=== PATIENT | female | born 1950 ===

== ENCOUNTER 2020-05-23 13:58 | Outpatient (REF) | payer BC, SELFPAY | END 2020-05-23 13:59 | disposition home or self-care (01) | LOC: HO.HMGCLDS 13:58 | PROVIDERS: PCP Internal Medicine; Visit Provider Internal Medicine | DX: Z20.828 Contact with and (suspected) exposure to other viral communicable diseases (principal) | CPT/HCPCS: U0003 ==

== ENCOUNTER 2020-11-26 07:48 | Outpatient (REF) | payer BC, SELFPAY ==
--- NOTE | ~2020-11-26 | MM_ITS ---
EXAMINATION: MM SCREENING DIGITAL BREAST TOMOSYNTHESIS, BILATERAL CLINICAL INFORMATION: Screening. Asymptomatic. The lifetime risk of breast cancer based on the Tyrer-Cuzick Model is 3%. COMPARISON: Mammography: 02/02/2019, 12/28/2017, 07/26/2015 TECHNIQUE: Digital breast tomosynthesis is performed in both the craniocaudal and mediolateral oblique views along with computer-aided detection (CAD). Synthesized 2D images are generated from the tomosynthesis. FINDINGS: There are scattered areas of fibroglandular density (ACR BI-RADS breast composition Category b). There is fibronodular parenchymal pattern without significant change. There is no architectural abnormality or significant mass. No abnormal calcifications. Pacemaker generator overlies and partly obscures left axilla on MLO view. The skin contours are smooth. MM/MM tomosynthesis screening BI IMPRESSION: No significant changes from prior studies. ASSESSMENT: BI-RADS 2: Benign RECOMMENDATION: Routine annual mammography screening. This patient's information was entered into a reminder system with a target due date for their next mammogram.
--- NOTE | ~2020-11-26 | MM_ITS ---
EXAMINATION: BONE DENSITOMETRY CLINICAL INDICATION: Encounter for screening for osteoporosis. COMPARISON: Previous BD dated 01/21/2016 and baseline BD dated 08/05/2010. TECHNIQUE: Using a Merkle DXA System (software version: 13.1) manufactured by [employer], dual-energy x-ray absorptiometry was performed of the lumbar spine and left hip. The images are of good technical quality. Summary results are attached. FINDINGS: AP SPINE L1-L4: Current: BMD 1.292 g/cm2, Z-score 2.7, T-score 0.9, normal, 5.3% increase from previous, 7.4% decrease from baseline (<5% change is not significant). Prior: BMD 1.227 g/cm2. Baseline: BMD 1.203 g/cm2. LEFT FEMUR, NECK: Current: BMD 0.771 g/cm2, Z-score -0.2, T-score -1.9, osteopenia. Prior: BMD 0.877 g/cm2. Baseline: BMD 0.888 g/cm2. LEFT FEMUR, TOTAL: Current: BMD 0.817 g/cm2, Z-score 0.0, T-score -1.5, osteopenia, 9.8% decrease from previous, 10.9% decrease from baseline (<5% change is not significant). Prior: BMD 0.906 g/cm2. Baseline: BMD 0.917 g/cm2. IDENTIFIED RISK FACTORS: Early menopause. Secondary osteoporosis. Hysterectomy. Bilateral oophorectomy. HISTORY OF FRACTURE: None listed. MEDICATIONS: Multivitamin. ERT/SERMS. MM/XR DEXA axial skeleton IMPRESSION: 1. DIAGNOSIS: Osteopenia based on the lowest T-score value of -1.9 in the femoral neck applying World Health Organization criteria. 2. 10-YEAR FRACTURE RISK PREDICTION, FRAX: Major osteoporotic fracture (clinical spine, forearm, hip or shoulder) 11.5%. Hip fracture 2.2%. 3. Treatment Recommendations: NOF guidelines recommend consideration for treatment in postmenopausal women and men age 50 and older presenting with the following: -A hip or vertebral (clinical or morphometric) fracture. -T-score less than or equal to -2.5 at the femoral neck or spine after appropriate evaluation to exclude secondary causes. -Low bone mass at the hip or spine and a 10-year fracture probability by FRAX of greater than or equal to 3% for hip fracture or greater than or equal to 20% for major osteoporotic fracture based on the [place] adapted WHO algorithm. 4. Other Recommendations: All treatment decisions require clinical judgment and consideration of individual patient factors, including patient preferences, comorbidities, previous drug use, risk factors not captured in the FRAX model (e.g. frailty, falls, vitamin D deficiency, increased bone turnover, interval significant decline in bone density) and possible under or overestimation of fracture risk by FRAX. Additional medical evaluation for secondary cause of low bone mineral density may be appropriate. FUTURE SCAN RECOMMENDATION: People with diagnosed cases of osteoporosis or at high risk for fracture should have regular bone mineral density tests. For patients eligible for Medicare, routine testing is allowed once every 2 years. The testing frequency can be increased to one year for patients who have rapidly progressing disease, those who are receiving or discontinuing medical therapy to restore bone mass, or have additional risk factors.
== END 2020-11-26 07:49 | disposition home or self-care (01) ==
LOC: HO.MAMMO 07:48
PROVIDERS: Visit Provider Internal Medicine
DX: Z13.820 Encounter for screening for osteoporosis (principal); Z78.0 Asymptomatic menopausal state; M85.852 Other specified disorders of bone density and structure, left thigh; Z90.710 Acquired absence of both cervix and uterus; Z90.722 Acquired absence of ovaries, bilateral; Z12.31 Encounter for screening mammogram for malignant neoplasm of breast
CPT/HCPCS: 77063; 77067; 77080

== ENCOUNTER 2020-12-20 06:55 | Outpatient (REF) | payer BC, SELFPAY ==
[2020-12-20 08:39] LABS: MANUAL DIFF FLAG NO
[2020-12-20 08:49] LABS: Basophils Percent Auto 0.6 % (0-2); Eosinophils Absolute Auto 0.2 X10*3/uL (0.0-0.4); Eosinophils Percent Auto 3.7 % (0-4); Hematocrit 43.4 % (37-47); Hemoglobin 14.4 g/dl (12.0-16.0); Imm Gran Abs Auto 0.02 X10*3/uL (0.00-0.03); Imm Gran Pct Auto 0.3 % (0.0-0.4); Lymphocytes Percent Auto 32.3 % (20-40); Mean Corpuscular HGB Conc 33.2 g/dl (31.0-35.0); Mean Corpuscular Hemoglobin 30.4 pg (27.0-33.0); Mean Corpuscular Volume 91.6 fL (80-98); Mean Platelet Volume 10.2 fL (9.4-12.3); Monocytes Absolute Auto 0.5 X10*3/uL (0.1-1.2); Monocytes Percent Auto 7.8 % (2-11); Neutrophils Absolute Auto 3.4 X10*3/uL (2.0-8.3); Neutrophils Percent Auto 55.3 % (45-73); Platelet Count 274 X10*3/uL (160-400); Red Blood Count 4.74 X10*6/uL (4.20-5.50); White Blood Count 6.2 X10*3/uL (4.8-10.8)
[2020-12-20 09:26] LABS: Alanine Aminotransferase 19 U/L (0-31); Anion Gap 12 (12-20); Aspartate Amino Transferase 28 U/L (5-31); Blood Urea Nitrogen 16 mg/dL (9-16); Calcium 9.1 mg/dL (8.4-10.2); Carbon Dioxide 27 mmol/L (22-29); Chloride 107 mmol/L (96-108); Cholesterol 256 mg/dL; Estimated Glomerular Filt Rate > 60; Glucose Fasting 100 mg/dL (60-99); HDL Cholesterol 65 mg/dL; LDL Cholesterol Calculated 178 mg/dl; Potassium 4.8 mmol/L (3.3-5.1); Sodium 141 mmol/L (135-145); Triglycerides 66 mg/dL
[2020-12-20 09:38] LABS: Vitamin D 25-OH Total 37.7 ng/mL (>30)
== END 2020-12-20 06:56 | disposition home or self-care (01) ==
LOC: HO.LAB 06:55
PROVIDERS: PCP Internal Medicine; Visit Provider Internal Medicine
DX: Z00.00 Encounter for general adult medical examination without abnormal findings (principal); Z12.31 Encounter for screening mammogram for malignant neoplasm of breast; E89.40 Asymptomatic postprocedural ovarian failure; I10 Essential (primary) hypertension; I48.0 Paroxysmal atrial fibrillation; I49.5 Sick sinus syndrome; M85.852 Other specified disorders of bone density and structure, left thigh
CPT/HCPCS: 36415; 80048; 80061; 82306; 84450; 84460; 85025

== ENCOUNTER 2021-05-10 09:08 | Outpatient (REF) | payer BC, SELFPAY ==
--- NOTE | ~2021-05-10 | XR_ITS ---
EXAMINATION: XR WRIST, RIGHT CLINICAL INFORMATION: Pain in the right wrist COMPARISON: None TECHNIQUE: PA, lateral, and oblique views of the right wrist. FINDINGS: There is no fracture or dislocation. The carpal rows are well aligned. Moderate degenerative change at the triscaphe joint with narrowing and sclerosis. The soft tissues are unremarkable. 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
== END 2021-05-10 09:09 | disposition home or self-care (01) ==
LOC: HO.HMGCX 09:08
PROVIDERS: PCP Internal Medicine; Visit Provider Family Medicine
DX: M25.531 Pain in right wrist (principal)
CPT/HCPCS: 73110

== ENCOUNTER 2023-02-03 11:49 | Outpatient (AMB) | payer MEDICARE, SELFPAY ==
--- NOTE | 2023-02-03 12:03 | A.OFFPC_ITS ---
Vital Signs 02/03/23 12:04 Height 5 ft 3 in Weight 135 lb BMI 23.9 BP 110/72 Blood Pressure Location Rt brachial Position Sitting Pulse 56 Pulse Source Pulse Oximeter Pulse Oximetry (%) 96 Oxygen Delivery Method Room Air Intake Visit Reasons: Annual PE Intake Note: Pt is here today for her PE: Never had a colonoscopy Allergies penicillin V Allergy (Unknown, Verified 02/03/23 12:23) unknown, per allergy test Penicillins [PENICILLINS] Allergy (Unknown, Verified 02/03/23 12:23) DURING ALLERGY TESTING WAS INSTRUCTED NEVER TO TAKE ENVIROMENTAL Allergy (Unknown, Uncoded 02/03/23 12:23) HEADACHES Medication List - Last Reconciled 02/03/23 by Berenice Lind MD aspirin (Adult Low Dose Aspirin) 81 mg PO DAILY estradiol 1 mg PO DAILY metoprolol succinate ER 12.5 mg PO DAILY multivitamin 1 tab PO DAILY turmeric root extract 500 mg PO DAILY Tobacco use date assessed: 02/03/23 Fall risk assessment: No Falls in past year Last assessed Fall Risk: 02/03/23 Dental Screening Dental Screen Date: 02/03/23 Did you have a dental visit in the last 12 months?: Yes Did you have a dental problem in the last 6 months where you did not have access to dental care?: No Was dental information given to patient?: Patient has dentist HPI Annual PE HPI Details 72-year-old lady here today for physical exam. SHe has paroxysmal atrial fibrillation, and history of sick sinus syndrome status post pacemaker placement, currently followed at [facility]. Sees [facility] for her routine Pap and pelvic exam and is currently being treated for atrophic vaginitis with his Estrace cream. She is up-to-date with her screening mammogram, due again next month, has osteopenia in left femoral neck and left femur as seen on initial bone density scan done in 2020, no history of any fractures. She stays active, does yoga and exercises regularly, is a Pescatarian. She also has call Dr. Manuel office to book her initial colonoscopy screening. Has had several tick bites in the past currently asymptomatic, would like to be screened for Lyme disease. [facility] Medical History Atrophic vaginitis Endometriosis Osteopenia of left hip Paroxysmal atrial fibrillation Sick sinus syndrome Surgical menopause Surgical History History of cholecystectomy S/P ANTONIO-BSO Status post placement of cardiac pacemaker Family History Father COPD (chronic obstructive pulmonary disease) Mother COPD (chronic obstructive pulmonary disease) Substance use disorder Sister Mental health disorder Sister Mental health disorder Social History Housing: Condominium Alcohol intake: current Alcohol intake frequency: holidays/special occasions only Patient Tobacco Use Status: Never used Tobacco e-Cigarette/Vaping Use: Never Used service: No Current occupational status: retired Cognitive needs: No Hearing needs: No Vision needs: Yes Questionnaire PHQ-9 Over the last 2 weeks, how often have you been bothered by any of the following problems? 1. Little interest or pleasure in doing things: not at all 2. Feeling down, depressed, or hopeless: not at all 3. Trouble falling or staying asleep, or sleeping too much: several days 4. Feeling tired or having little energy: not at all 5. Poor appetite or overeating: not at all 6. Feeling bad about yourself - or that you are a failure or have let yourself or your family down: not at all 7. Trouble concentrating on things, such as reading the newspaper or watching television: not at all 8. Moving or speaking so slowly that other people could have noticed. Or the opposite - being so fidgety or restless that you have been moving around a lot more than usual: not at all 9. Thoughts that you would be better off or of hurting yourself in some way: not at all Total score: 1 Depression Screening Interpretation: Negative [id number] - PHQ-9 Billing: Yes Source: Developed by Drs. Abdirashid Obregon, Alexandria Josue, Robson Kruse and colleagues, with an educational alan from [employer]. Thrive Questionnaire Date Thrive assessed: 02/03/23 I am a: Patient What is your living situation today?: I have a steady place to live Within the past 12 months, did the food you bought not last and you didn't have the money to get more?: Never true Within the past 12 months, did you worry whether your food would run out before you got money to buy more?: Never true Do you have trouble paying for medicines?: No Do you have trouble getting transportation to medical appointments?: No Do you have trouble paying your heating and electricity bill?: No Do you have trouble taking care of your child, family member or friend?: No Do you have trouble with day-to-day activities such as bathing, preparing meals, shopping, managing finances, etc.?: No Are you currently unemployed and looking for a job?: No Are you interested in more education?: No Please select the resources that you would like help with: Transportation AUDIT C Alcohol Use Questionnaire (AUDIT-C) 1. How often do you have a drink containing alcohol?: Monthly or less 2. How many drinks containing alcohol do you have on a typical day when you are drinking?: 1 or 2 3. How often do you have six or more drinks on one occasion?: Never Total Score: 1 STEPH-7 AMB Questionnaire STEPH-7 Date STEPH - 7 assessed: 02/03/23 Source: Developed by Drs. Abdirashid Obregon, Alexandria Josue, Robson Kruse and colleagues, with an educational alan from [employer]. STEPH-7 Assessment Billing STEPH-7 Assessment Tool: pt declined-do not bill Review of Systems Const Denies body aches, Denies fatigue, Denies fever(s), Denies headache(s) and Denies weakness Eyes Denies change in vision, Denies eye discharge, Denies itchy eyes and Reports requires corrective lenses ENT Denies dizziness, Denies headache(s), Denies nasal congestion, Denies nasal discharge and Denies sore throat Card Denies chest pain, Denies lightheadedness, Denies palpitations and Denies dyspnea Resp Denies chest congestion, Denies cough, Denies dyspnea and Denies wheezing GI Details: Schedule an appoint with Dr. Manuel for her initial screening colonoscopy Denies abdominal pain, Denies change in bowel habits and Denies heartburn Denies urinary frequency, Denies dysuria and Denies urinary urgency Musc Reports no additional complaints Skin/Breast Details: Sees Dr. Wolf for her skin exam Denies lesions and Denies rash Neuro Denies dizziness, Denies headache(s) and Denies weakness Psych Reports as per HPI Endo Denies fatigue, Denies polydipsia, Denies polyuria and Denies palpitations Trevon/Lymph Denies easy bleeding and Denies easy bruising Aller/Immun Denies itchy eyes, Denies seasonal rhinorrhea and Denies wheezing Physical exam (Primary Care) Vital Signs: Last Vital Signs Pulse 56 02/03/23 12:04 BP 110/72 02/03/23 12:04 Pulse Ox 96 02/03/23 12:04 Oxygen Delivery Method Room Air 02/03/23 12:04 BMI result Body Mass Index 23.9 Tobacco/Smoking Status: Tobacco use Status Tobacco use date assessed 02/03/23 02/03/23 12:06 Patient Tobacco Use Status Never used Tobacco 02/03/23 12:03 e-Cigarette/Vaping Use Never Used 02/03/23 12:06 PHQ-9: PHQ-9 Score PHQ-9: Total score 1 02/03/23 13:05 Depression Screening Interpretation: Negative Thrive Assessment: Date of Thrive Assessment Date Thrive assessed 02/03/23 02/03/23 12:21 Advance Care Planning discussion: Completed/Scanned Date of discussion: 02/03/23 Who was present: Patient Forms completed: Health Care Proxy (Has already in place, will provide us with a copy on next visit) and MOLST Time spent: 16-45 minutes Actual minutes spent: 16 Const General: cooperative, healthy appearing, comfortable and no acute distress Nutritional Appearance: average body habitus Orientation/consciousness: patient oriented x3 Limitations: no limitations [facility] Head: Yes normocephalic Ears: hearing grossly normal bilaterally, external ears normal, TM's normal bilaterally and EAC's normal General nose exam: Normal external nose present Face and sinus: Yes normal facial exam, Yes sinuses nontender and Yes face symmetric Mouth: Normal oral and palatal mucosa present, oropharynx normal and moist mucous membranes Eyes General: appearance normal, both eyes and all related structures Eyelids: Yes eyelids normal Conjunctivae: conjunctivae normal Sclerae: sclerae normal Pupils: Equal, round and reactive pupils present EOM: EOMs intact bilaterally Neck Neck: Yes full ROM, Yes no lymphadenopathy and Yes supple Thyroid: Thyroid normal Chest Chest palpation & inspection: normal inspection of the chest Breast/axilla inspection: normal inspection of the breasts Breast/axilla palpation: normal palpation of the breasts Resp Effort & Inspection: normal respiratory effort and able to speak in complete sentences Auscultation: clear to auscultation bilaterally Cardio Rate: regular rate Rhythm: regular rhythm Heart sounds: S1 normal heart sound present and S2 normal heart sound present Bruits: no abdominal aortic bruits Peripheral pulses: Peripheral pulses 2+ throughout GI Inspection: Yes normal to inspection Palpation (GI): No Abdominal aortic bruit present, Soft to palpation, nontender, no guarding and no masses Auscultation: normal bowel sounds Rectal Exam - Female: deferred (Sees her OBGYN) General: Yes no CVA tenderness Back/Spine/Pelvis Back: no CVA tenderness and No back tenderness Skin General skin exam: no rashes or lesions noted Neuro General: patient oriented x3, gait normal, tone normal, moves all extremities, Normal light touch and pain sensation, no focal motor deficits and CN's II-XI intact bilaterally Cranial nerves: Yes Equal, round and reactive pupils present Cognition (Neuro): normal cognition Gait exam (Neuro): Normal gait present Motor exam (neuro): 5/5 motor strength present throughout Extrem General: Yes full ROM, Yes no joint enlargement, Yes no clubbing, cyanosis or edema and Yes normal gait Psych Appearance: grossly normal and well kempt Mental Status: mental status grossly normal Speech and movement: Normal speech and movement present Affect: normal affect Attitude: cooperative Thought process: Normal thought process present Thought content: Normal thought content present Immunizations pneumoc 20-alejandra conj-dip cr(PF) Performing Provider: Berenice Lind MD Administered by: Cece Che CMA on 02/03/23 13:05 Dose Route Admin Location Lot Number Expiration Date [employer] 0.5 mL IM Left Deltoid [id number] 04/06/24 [id number] [employer] VIS Given Date VIS Provided VIS Publication Date 02/03/23 Single Vaccine 21 Eligibility Eligibility Date Funding Source Not [facility] Eligible 02/03/23 Private Assessment and Plan Assessment & Plan (1) Annual visit for general adult medical examination with abnormal findings: Code(s): Z00.01 - Encounter for general adult medical examination with abnormal findings Plan: Will check appropriate labs. Continue regular dental visit every 6 months and regular eye exams, at least every 2 years, goes to an eye doctor in [place]. Take adequate calcium in diet and vitamin-D 3 at 2000 IU per cap once a day, in addition to weight-bearing exercises to help maintain good muscle tone and weight control. Instructed to do self-breast exam, and continue to get yearly mammogram, , and will or another bone density scan next year together with her mammogram.. Rheumatic get her COVID booster, and advised to get her shingles vaccination, RSV and her yearly flu shot. Prevnar 20 given today, currently up-to-date with her Tdap (2) Tick bite: Code(s): W57.XXXA - Bitten or stung by nonvenomous insect and other nonvenomous arthropods, initial encounter Plan: Has had multiple tick bites in the past, currently asymptomatic, will do a baseline Lyme titer (3) Sick sinus syndrome: Comment: status post [employer] pacemaker placement May 2015 Code(s): I49.5 - Sick sinus syndrome Plan: Currently followed at [facility] cardiovascular clinic (4) Paroxysmal atrial fibrillation: Comment: currently being followed by Dr. Hannon Code(s): I48.0 - Paroxysmal atrial fibrillation Plan: Followed by cardiology, on metoprolol succinate ER 12.5 mg daily and aspirin 81 mg daily (5) Status post placement of cardiac pacemaker: Comment: [employer] pacemaker placed May 2015 Code(s): Z95.0 - Presence of cardiac pacemaker (6) Osteopenia of left hip: Code(s): M85.852 - Other specified disorders of bone density and structure, left thigh Plan: Encouraged to continue doing yoga to weight-bearing exercises, start taking ptth-czl-yqtcdvy vitamin-D 3 supplements at 2000 units daily and take adequate calcium from dietary sources. Repeat another bone density scan next year together with mammogram (7) Atrophic vaginitis: Comment: Sees her OBGYN Dr. Ferrara at [facility] Code(s): N95.2 - Postmenopausal atrophic vaginitis Plan: Currently sees [facility], on Estrace cream (8) Postmenopausal: Code(s): Z78.0 - Asymptomatic menopausal state Plan: Check vitamin-D level Orders: Orders Lyme IgG/IgM w/reflex to WB Today W57.XXXA - Bitten or stung by nonvenomous insect and other nonvenomous arthropods, initial encounter Alanine Aminotransferase Today E89.40 - Asymptomatic postprocedural ovarian failure, I48.0 - Paroxysmal atrial fibrillation, I49.5 - Sick sinus syndrome, M85.852 - Other specified disorders of bone density and structure, left thigh, N95.2 - Postmenopausal atrophic vaginitis, Z00.01 - Encounter for general adult medical examination with abnormal findings, Z78.0 - Asymptomatic menopausal state, Z95.0 - Presence of cardiac pacemaker Aspartate Amino Transferase Today E89.40 - Asymptomatic postprocedural ovarian failure, I48.0 - Paroxysmal atrial fibrillation, I49.5 - Sick sinus syndrome, M85.852 - Other specified disorders of bone density and structure, left thigh, N95.2 - Postmenopausal atrophic vaginitis, Z00.01 - Encounter for general adult medical examination with abnormal findings, Z78.0 - Asymptomatic menopausal state, Z95.0 - Presence of cardiac pacemaker Vitamin B12 and Folate Today E89.40 - Asymptomatic postprocedural ovarian failure, I48.0 - Paroxysmal atrial fibrillation, I49.5 - Sick sinus syndrome, M85.852 - Other specified disorders of bone density and structure, left thigh, N95.2 - Postmenopausal atrophic vaginitis, Z00.01 - Encounter for general adult medical examination with abnormal findings, Z78.0 - Asymptomatic menopausal state, Z95.0 - Presence of cardiac pacemaker Basic Metabolic Panel Fasting Today E89.40 - Asymptomatic postprocedural ovarian failure, I48.0 - Paroxysmal atrial fibrillation, I49.5 - Sick sinus syndrome, M85.852 - Other specified disorders of bone density and structure, left thigh, N95.2 - Postmenopausal atrophic vaginitis, Z00.01 - Encounter for general adult medical examination with abnormal findings, Z78.0 - Asymptomatic menopausal state, Z95.0 - Presence of cardiac pacemaker Lipid Panel Today E89.40 - Asymptomatic postprocedural ovarian failure, I48.0 - Paroxysmal atrial fibrillation, I49.5 - Sick sinus syndrome, M85.852 - Other specified disorders of bone density and structure, left thigh, N95.2 - Postmenopausal atrophic vaginitis, Z00.01 - Encounter for general adult medical examination with abnormal findings, Z78.0 - Asymptomatic menopausal state, Z95.0 - Presence of cardiac pacemaker Vitamin D 25-OH Total Today E89.40 - Asymptomatic postprocedural ovarian failure, I48.0 - Paroxysmal atrial fibrillation, I49.5 - Sick sinus syndrome, M85.852 - Other specified disorders of bone density and structure, left thigh, N95.2 - Postmenopausal atrophic vaginitis, Z00.01 - Encounter for general adult medical examination with abnormal findings, Z78.0 - Asymptomatic menopausal state, Z95.0 - Presence of cardiac pacemaker Pneumococcal 20 Immunization Today Z23 - Encounter for immunization Coding Level of Care Code Est Pt Prev Care >65y(85968) Diagnoses Annual visit for general adult medical examination with abnormal findings Z00.01 Tick bite W57.XXXA Sick sinus syndrome I49.5 Paroxysmal atrial fibrillation I48.0 Status post placement of cardiac pacemaker Z95.0 Osteopenia of left hip M85.852 Atrophic vaginitis N95.2 Postmenopausal Z78.0 Additional Codes Vital Signs *Quality* - Advance Care Planning discussion: Completed/Scanned ([id number]) Vital Signs *Quality* - Time spent: 16-45 minutes ([id number])
[2023-02-03 12:04] VITALS: BP 110/72; PULSE 56; O2SAT 96; BMI 23.9
== END 2023-02-03 13:42 | disposition home or self-care (01) ==
PROVIDERS: Visit Provider Internal Medicine
DX: Z00.00 Encounter for general adult medical examination without abnormal findings (principal); I49.5 Sick sinus syndrome; I48.0 Paroxysmal atrial fibrillation; T63.481A Toxic effect of venom of other arthropod, accidental (unintentional), initial encounter; Z23 Encounter for immunization; Z95.0 Presence of cardiac pacemaker; M85.852 Other specified disorders of bone density and structure, left thigh; N95.2 Postmenopausal atrophic vaginitis; Z78.0 Asymptomatic menopausal state
CPT/HCPCS: 90471; 90677; 99397; 99497

== ENCOUNTER 2023-02-09 07:06 | Outpatient (REF) | payer MEDICARE, SELFPAY ==
[2023-02-09 08:25] LABS: Alanine Aminotransferase 17 U/L (0-31); Anion Gap 10 (12-20); Aspartate Amino Transferase 27 U/L (5-31); Blood Urea Nitrogen 14 mg/dL (9-16); Calcium 9.2 mg/dL (8.4-10.2); Carbon Dioxide 25 mmol/L (22-29); Chloride 108 mmol/L (96-108); Cholesterol 263 mg/dL (<200); Estimated Glomerular Filt Rate > 60; Glucose Fasting 103 mg/dL (60-99); HDL Cholesterol 70 mg/dL (>40); LDL Cholesterol Calculated 168 mg/dL (<100); Potassium 4.6 mmol/L (3.3-5.1); Sodium 138 mmol/L (135-145); Triglycerides 128 mg/dL (<150)
[2023-02-09 08:38] LABS: Vitamin D 25-OH Total 40.6 ng/mL (>30)
[2023-02-09 08:51] LABS: Folate 15.7 ng/mL (> or = 4.0); Vitamin B12 675 pg/mL (200-900)
[2023-02-11 17:22] LABS: Lyme Abs Screen <0.90 index
== END 2023-02-09 07:07 | disposition home or self-care (01) ==
LOC: HO.LAB 07:06
PROVIDERS: PCP Internal Medicine; Visit Provider Internal Medicine
DX: Z00.01 Encounter for general adult medical examination with abnormal findings (principal); T14.8XXA Other injury of unspecified body region, initial encounter; W57.XXXA Bitten or stung by nonvenomous insect and other nonvenomous arthropods, initial encounter; E89.40 Asymptomatic postprocedural ovarian failure; I48.0 Paroxysmal atrial fibrillation; I49.5 Sick sinus syndrome; M85.852 Other specified disorders of bone density and structure, left thigh; Z78.0 Asymptomatic menopausal state; Z95.0 Presence of cardiac pacemaker
CPT/HCPCS: 36415; 80048; 80061; 82306; 82607; 82746; 84450; 84460; 86617; 86618

== ENCOUNTER 2023-02-16 08:10 | Outpatient (REF) | payer MEDICARE, SELFPAY | END 2023-02-16 08:11 | disposition home or self-care (01) | LOC: HO.MAMMO 08:10 | PROVIDERS: PCP Internal Medicine; Visit Provider Internal Medicine | DX: Z12.31 Encounter for screening mammogram for malignant neoplasm of breast (principal) | CPT/HCPCS: 77063; 77067 ==

== ENCOUNTER → 2023-02-16 08:15 | Outpatient (BNV) | payer MEDICARE, SELFPAY | PROVIDERS: PCP Internal Medicine; Visit Provider Radiology Diagnostic Radiology | DX: Z12.31 Encounter for screening mammogram for malignant neoplasm of breast (principal) | CPT/HCPCS: 77063; 77067 ==

== ENCOUNTER 2024-01-31 12:14 | Day surgery (SDC) | payer MEDICARE, SELFPAY ==
[2024-01-31 13:42] VITALS: BP 118/62; PULSE 55; RESP 16; TEMP 37.2; O2SAT 98; BMI 22.3
--- NOTE | 2024-01-31 13:53 | P.CONAN_ITS ---
HPI - Anesthesia Eval Consult details Narrative: colon screen PMFSH Active Problems Active Problems: All Active Problems Spider bite wound (Acute) Spider bite (Acute) Right wrist pain (Acute) Atrophic vaginitis (Acute) Surgical menopause (Acute) Osteopenia of left hip (Acute) Status post placement of cardiac pacemaker (Acute) Paroxysmal atrial fibrillation (Acute) Sick sinus syndrome (Acute) Past Medical History Medical History Atrophic vaginitis Surgical menopause Osteopenia of left hip Endometriosis Paroxysmal atrial fibrillation Sick sinus syndrome Family History Family History Father COPD (chronic obstructive pulmonary disease) Mother COPD (chronic obstructive pulmonary disease) Substance use disorder Sister Mental health disorder Sister Mental health disorder Family history of problems with anesthesia: No Surgical History Surgical History History of cholecystectomy S/P ANTONIO-BSO Status post placement of cardiac pacemaker History of Problems with Anesthesia: No Social History [facility] Alcohol intake: current Alcohol intake frequency: holidays/special occasions only Patient Tobacco Use Status: Never used Tobacco e-Cigarette/Vaping Use: Never Used Use of substances other than those prescribed or required for medical reasons: No Are you DNR?: Yes Advance Directives: No Advance Directives Information Provided: Yes service: No Current occupational status: retired Cognitive needs: No Hearing needs: No Vision needs: Yes Meds Allergies Allergy/AdvReac Type Severity Reaction Status Date / Time penicillin V Allergy Unknown unknown, Verified 01/31/24 13:17 per allergy test Penicillins [PENICILLINS] Allergy Unknown DURING Verified 01/31/24 13:17 ALLERGY TESTING WAS INSTRUCTED NEVER TO TAKE ENVIROMENTAL Allergy Unknown HEADACHES Uncoded 01/31/24 13:17 Active Medications: Current Medications Sodium Biphosphate/Sodium Phosphate (Sodium Phosphate,[place]-Dibasic 133 Ml Enema) 133 ml MA ONCE PRN PRN Reason: Poor Colonoscopy Prep Results Home Medications ?Medication ?Instructions ?Recorded ?Confirmed ?Last Taken ?Type aspirin 81 mg tablet,delayed 81 mg PO DAILY 10/10/20 01/31/24 01/28/24 History release (Adult Low Dose Aspirin) estradiol 1 mg tablet 1 mg PO DAILY 10/10/20 01/31/24 Unknown History metoprolol succinate 25 mg 12.5 mg PO DAILY 10/10/20 01/31/24 Unknown History tablet,extended release 24 hr multivitamin 1 tab PO DAILY 10/10/20 01/31/24 Unknown History turmeric root extract 500 mg tablet 500 mg PO DAILY 02/03/23 01/31/24 Unknown History Exam Height,Weight and Vital Signs: Height 5 ft 3 in Weight 57.153 kg Last Vital Signs Temp 98.9 F 01/31/24 13:42 Pulse 55 01/31/24 13:42 Resp 16 01/31/24 13:42 BP 118/62 01/31/24 13:42 Pulse Ox 98 01/31/24 13:42 O2 Del Method Room Air 01/31/24 13:42 Airway Mallampati Class: II TM Dist: >3cm Neck ROM: Full Heart: rrr Lungs: cta Assessment and Plan Assessment Anesthesia Assessment: Anesthesia Plan Discussed Final Anesthetic Review Family History of Problems with Anesthesia: No History of Problems with Anesthesia: No NPO: Yes ASA Class: II Final Preanesthetic Review: No Changes in Pt Med Stat, Meds/Allgs Chart Reviewed, Consent Obtained/Reviewed and Anes Risks/Benef Reviewed Patient Risk: Intermediate Procedure Risk: Low Anesthetic Plan Anesthetic Plan: MAC: Disposition: Standard PACU
[2024-01-31 15:27] VITALS: BP 115/60; PULSE 66; RESP 16; TEMP 36.1; O2SAT 97
--- NOTE | 2024-01-31 15:31 | PM.OP ---
Brief Operative Note Date of Service: 01/31/24 Pre-op diagnosis: Screening Post-op diagnosis: other (Colon polyp) Procedure: Colonoscopy to the cecum with hot snare polypectomy Surgeon: Abdirashid Manuel MD Anesthesia: MAC Was an Patient Access Coordinator used for this Procedure?: No Estimated blood loss (mL): 0 Pathology: other (A. Polyp at 40cm) Condition: stable Disposition: PACU
[2024-01-31 15:42] VITALS: BP 116/63; PULSE 55; RESP 16; O2SAT 99
[2024-01-31 15:57] VITALS: BP 113/68; PULSE 55; RESP 16; TEMP 36.2; O2SAT 100
[2024-01-31 16:12] VITALS: BP 113/68; PULSE 55; RESP 16; TEMP 36.2; O2SAT 100
--- NOTE | 2024-01-31 16:49 | OP_ITS ---
DATE OF SERVICE: 01/31/2024 SURGEON: Abdirashid Manuel MD INDICATIONS: The patient presents for evaluation of colorectal cancer screening. Full consent has been obtained from her for this, including risks of bleeding and perforation. PREOPERATIVE DIAGNOSIS: Colorectal cancer screening. POSTOPERATIVE DIAGNOSIS: PROCEDURE PERFORMED: Colonoscopy to cecum with hot snare polypectomy. ESTIMATED BLOOD LOSS: COMPLICATIONS: ANESTHESIA: Monitored anesthesia care. ASSISTANTS: SPECIMENS: POSTOPERATIVE DIAGNOSES: Colorectal cancer screening, colon polyp, diverticulosis, and internal hemorrhoids. DESCRIPTION OF PROCEDURE: The patient was placed in the left lateral decubitus position. The digital rectal exam revealed no abnormalities. The Olympus video pediatric colonoscope was then entered into the rectum and advanced easily to the cecum. Once in the cecum, I did identify normal-appearing cecal pouch with appendiceal orifice and a normal-appearing ileocecal valve. The entire cecum and ileocecal valve appeared normal. There was transillumination of light deep in the right lower quadrant. The scope was slowly withdrawn assessing all mucosal surfaces carefully. Preparation was excellent. At 40 cm, was an approximately 10 to 12 mm polyp on a short stalk, which was removed by hot snare polypectomy and recovered by suction. There was some residual stalk and what appeared to be some polyp tissue remaining and this was also removed by hot snare polypectomy and recovered and placed in the same container. The polypectomy site appeared clean, without any sign of residual polyp nor bleeding. I did not visualize any other polyps, colitis, nor angiodysplasias. There was a mild amount of sigmoid diverticulosis. In the rectum, scope was retroflexed, visualizing internal hemorrhoids, but no other pathology. The rectal mucosa appeared normal. Scope was straightened and withdrawn from the patient. She tolerated the procedure well and was returned to the recovery area in stable condition. IMPRESSION: 1. Colon polyp. 2. Diverticulosis. 3. Internal hemorrhoids. PLAN: The results of the pathology will be checked. Assuming this is a tubular adenoma, I would recommend a followup colonoscopy in 5 years for further screening. She was advised not to use any aspirin nor NSAIDs for 1 week. MD ALEXANDRIA Zarate/JUAN / [id number]
== END 2024-01-31 16:19 | disposition home or self-care (01) ==
PROVIDERS: PCP Internal Medicine; Visit Provider Internal Medicine
PROC: 0DJD8ZZ Inspection of Lower Intestinal Tract, Via Natural or Artificial Opening Endoscopic (ICD-10-PCS; CPT 45378; principal; 2024-01-31 13:50)
DX: Z12.11 Encounter for screening for malignant neoplasm of colon (principal); D12.5 Benign neoplasm of sigmoid colon; K57.30 Diverticulosis of large intestine without perforation or abscess without bleeding; K64.8 Other hemorrhoids; I10 Essential (primary) hypertension; E78.5 Hyperlipidemia, unspecified; Z79.82 Long term (current) use of aspirin; Z95.0 Presence of cardiac pacemaker; Z79.899 Other long term (current) drug therapy; Z79.1 Long term (current) use of non-steroidal anti-inflammatories (NSAID); Z88.0 Allergy status to penicillin; Z98.890 Other specified postprocedural states
CPT/HCPCS: 45385; 88305; J2704

== ENCOUNTER 2024-02-14 08:28 | Outpatient (AMB) | payer MEDICARE, SELFPAY ==
--- NOTE | 2024-02-14 09:12 | AM.OFFWIN_ITS ---
Intake Vital Signs 02/14/24 09:14 Height 5 ft 3 in Weight 128 lb 4 oz BMI 22.7 BP 122/68 Blood Pressure Location Lt brachial Position Sitting Respiration 15 Pulse 63 Pulse Source Pulse Oximeter Pulse Oximetry (%) 98 Oxygen Delivery Method Room Air Intake Visit Reasons: est/ all around joint pain Intake Note: Patient is here with pain on her joints x 1 months. Patient pcp told her to come in to walk i clinic today. Patient Tobacco Use Status: Never used Tobacco Allergies penicillin V Allergy (Unknown, Verified 02/14/24 09:46) unknown, per allergy test Penicillins [PENICILLINS] Allergy (Unknown, Verified 02/14/24 09:46) DURING ALLERGY TESTING WAS INSTRUCTED NEVER TO TAKE ENVIROMENTAL Allergy (Unknown, Uncoded 01/31/24 13:17) HEADACHES Medication List - Last Reconciled 02/14/24 by KALA Granado- aspirin (Adult Low Dose Aspirin) 81 mg PO DAILY estradiol 1 mg PO DAILY metoprolol succinate ER 12.5 mg PO DAILY multivitamin 1 tab PO DAILY turmeric root extract 500 mg PO DAILY HPI HPI Comments History of Present Illness Details 73 y/o F here today w/ complaints of gen eralized joint pain Specifically she would like to address the pain and bilat hands that started about 6 weeks ago. She reports that she is a very active person. Doing body pump. She was able to perform her regular exercises when all of a sudden she noticed it was hard for her to go into down dog position and perform other exercises due to the pain and bilat hands. She reports that she feels a lump in the palm of her left hand. She also worries about deformities her fingers. In regards to other generalized joint pain. Reports over the last few years and months she has noticed pain in her joints generally speaking to include her shoulders, elbows, wrist, knees and ankles. Reports her knees only hurt when she is on them. Does not hurt when she bends or walks. She started to self treat with Advil twice per day with positive relief. However she had to stop this for reason colonoscopy and noticed that her pain worsened. She was active with a hand specialist back in 2014 for osteoarthritis. 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 She denies a personal history of rheumatoid arthritis. She denies fever, chills, recent travel, known tick bite joint swelling, redness to the joint, any new medication. She does report sister has MS. She called in to her primary care with these complaints. Labs were ordered. Labs done by PCP 02/11/24 reviewed Lyme negative, normal CMP except mild elevation in blood sugar which is chronic, HLD not on statin- again chronic. Exam: Awake alert NAD No edema, erythema of joints. No obvious deformitiy. Chronic arthritic changes noted bilat hands and fingers of bilat hands. She reports pain with palpation over palmar surface of the left hand. Bilateral upper extremities are neurovascularly intact. The skin is intact. She has pain with palpation over the left wrist, elbow and shoulder. She also has pain over the right wrist and elbow. Limited range of motion of right wrist due to pain. Plan Offered to check some labs to include a sed rate, CRP, etc.. However she does not wish to pursue this at this time. Would like to focus on her hands. The plan will be to check x-rays of bilat hands. Refer to orthopedics. She will follow up with her primary care for additional workup in regards to her generalized joint pain. I have advised her to stop taking aleve twice per day. Instead I have sent in a prescription for meloxicam 7.5 mg. She can take 1 tablet daily with food. Advised not to use any [id number] NSAIDs while taking this medication. If she needs to take anything for breakthrough pain I do recommend Tylenol. Message sent to her via the portal at 15:01 with the results of the x-rays. See results below. Continue to recommend orthopedic follow up as arranged. Total time spent caring for the patient today was 30 minutes. This includes time spent before the visit reviewing the chart, time spent during the visit, and time spent after the visit on documentation This note is constructed using voice recognition software. While every effort has been made to ensure accuracy in financial services specialist, still errors may have been included Sometimes, these errors may affect the content or meaning of the given sentence . [facility] Medical History Atrophic vaginitis Surgical menopause Osteopenia of left hip Endometriosis Paroxysmal atrial fibrillation Sick sinus syndrome Surgical History History of cholecystectomy S/P ANTONIO-BSO Status post placement of cardiac pacemaker Family History Father COPD (chronic obstructive pulmonary disease) Mother COPD (chronic obstructive pulmonary disease) Substance use disorder Sister Mental health disorder Sister Mental health disorder Social History Housing: Condominium Alcohol intake: current Alcohol intake frequency: holidays/special occasions only Patient Tobacco Use Status: Never used Tobacco e-Cigarette/Vaping Use: Never Used service: No Current occupational status: retired Cognitive needs: No Hearing needs: No Vision needs: Yes Physical Exam Vital Signs: Last Vital Signs Pulse 63 02/14/24 09:14 Resp 15 02/14/24 09:14 BP 122/68 02/14/24 09:14 Pulse Ox 98 02/14/24 09:14 Oxygen Delivery Method Room Air 02/14/24 09:14 BMI result Body Mass Index 22.7 Results Reviewed Results Reviewed: [facility] [place] [address] [address] XRay Report Signed Patient: Angelica Contreras MR#: [id number] : 1950 Acct:[id number] Age/Sex: 73 / F ADM Date: 02/14/24 Loc: HO.HMGCX Attending Dr: Sun MAI Ordering Physician: Sun Gutierrez Date of Service: 02/14/24 Procedure(s): XR hand RT min 3V Accession Number(s): [id number] cc: Berenice Lind MD; Sun Gutierrez~ EXAMINATION: RADIOGRAPH BILATERAL HANDS CLINICAL INFORMATION: Pain. COMPARISON: Radiograph right wrist 05/10/2021. TECHNIQUE: 3 views of each hand. FINDINGS: No acute fracture or dislocation. Severe joint space narrowing and mild subcortical sclerosis of the third DIP joint on the right hand. Mild to moderate joint space narrowing of the remaining of the DIP joints bilaterally. Small multifocal marginal osteophytes in the DIP joints bilaterally. Moderate joint space narrowing and subchondral sclerosis of the first CMC joint and triscaphe space bilaterally. No osseous erosions. No abnormal soft tissue calcifications. XR/XR hand RT min 3V IMPRESSION: 1. No acute fracture or dislocation. 2. Severe degenerative osteoarthritis of the third DIP joint of the right hand. Otherwise, moderate multifocal degenerative osteoarthritis bilaterally predominantly involving the distal interphalangeal joints, first carpometacarpal joints and triscaphe spaces. 3. No erosive changes. 4. No unusual soft tissue calcifications. Electronically signed by: Felisha Green MD 02/14/2024 01:48 PM EDT RP Dictated By: Felisha Green Signed By: <Electronically signed by Felisha Green in OV> 02/14/24 1348 Assessment & Plan Assessment & Plan (1) Bilateral hand pain: Code(s): M79.641 - Pain in right hand; M79.642 - Pain in left hand Plan: . (2) Osteoarthritis of hands, bilateral: Code(s): M19.041 - Primary osteoarthritis, right hand; M19.042 - Primary osteoarthritis, left hand Qualifiers: Osteoarthritis type: unspecified Qualified Code(s): M19.041 - Primary osteoarthritis, right hand; M19.042 - Primary osteoarthritis, left hand Plan: . (3) Osteoarthritis of fingers of both hands: Code(s): M19.041 - Primary osteoarthritis, right hand; M19.042 - Primary osteoarthritis, left hand Plan: . Plan . Orders: Orders XR hand RT min 3V Today M79.641 - Pain in right hand, M79.642 - Pain in left hand, M85.642 - Other cyst of bone, left hand XR hand LT min 3V Today M79.641 - Pain in right hand, M79.642 - Pain in left hand, M85.642 - Other cyst of bone, left hand Referrals Orthopedics Referral M79.641 - Pain in right hand, M79.642 - Pain in left hand, M85.642 - Other cyst of bone, left hand Medications: New meloxicam 7.5 mg PO DAILY 30 tabs 0RF Coding Level of Care Code Est Pt Level 4 (83208) Diagnoses Bilateral hand pain M79.641; M79.642 Osteoarthritis of both hands, unspecified osteoarthritis type M19.041; M19.042 Osteoarthritis type: unspecified Osteoarthritis of fingers of both hands M19.041; M19.042
[2024-02-14 09:14] VITALS: BP 122/68; PULSE 63; RESP 15; O2SAT 98; BMI 22.7
== END 2024-02-14 17:05 | disposition home or self-care (01) ==
PROVIDERS: PCP Internal Medicine; Visit Provider Nurse Practitioner Family
DX: M79.641 Pain in right hand (principal); M79.642 Pain in left hand; M19.041 Primary osteoarthritis, right hand; M19.042 Primary osteoarthritis, left hand
CPT/HCPCS: 99214

== ENCOUNTER 2024-02-14 13:02 | Outpatient (REF) | payer MEDICARE, SELFPAY ==
--- NOTE | ~2024-02-14 | XR_ITS ---
EXAMINATION: RADIOGRAPH BILATERAL HANDS CLINICAL INFORMATION: Pain. COMPARISON: Radiograph right wrist 05/10/2021. TECHNIQUE: 3 views of each hand. FINDINGS: No acute fracture or dislocation. Severe joint space narrowing and mild subcortical sclerosis of the third DIP joint on the right hand. Mild to moderate joint space narrowing of the remaining of the DIP joints bilaterally. Small multifocal marginal osteophytes in the DIP joints bilaterally. Moderate joint space narrowing and subchondral sclerosis of the first CMC joint and triscaphe space bilaterally. No osseous erosions. No abnormal soft tissue calcifications. XR/XR hand RT min 3V IMPRESSION: 1. No acute fracture or dislocation. 2. Severe degenerative osteoarthritis of the third DIP joint of the right hand. Otherwise, moderate multifocal degenerative osteoarthritis bilaterally predominantly involving the distal interphalangeal joints, first carpometacarpal joints and triscaphe spaces. 3. No erosive changes. 4. No unusual soft tissue calcifications. Electronically signed by: Felisha Green MD 02/14/2024 01:48 PM EDT
--- NOTE | ~2024-02-14 | XR_ITS ---
EXAMINATION: RADIOGRAPH BILATERAL HANDS CLINICAL INFORMATION: Pain. COMPARISON: Radiograph right wrist 05/10/2021. TECHNIQUE: 3 views of each hand. FINDINGS: No acute fracture or dislocation. Severe joint space narrowing and mild subcortical sclerosis of the third DIP joint on the right hand. Mild to moderate joint space narrowing of the remaining of the DIP joints bilaterally. Small multifocal marginal osteophytes in the DIP joints bilaterally. Moderate joint space narrowing and subchondral sclerosis of the first CMC joint and triscaphe space bilaterally. No osseous erosions. No abnormal soft tissue calcifications. XR/XR hand LT min 3V IMPRESSION: 1. No acute fracture or dislocation. 2. Severe degenerative osteoarthritis of the third DIP joint of the right hand. Otherwise, moderate multifocal degenerative osteoarthritis bilaterally predominantly involving the distal interphalangeal joints, first carpometacarpal joints and triscaphe spaces. 3. No erosive changes. 4. No unusual soft tissue calcifications. Electronically signed by: Felisha Green MD 02/14/2024 01:48 PM EDT
== END 2024-02-14 13:03 | disposition home or self-care (01) ==
LOC: HO.HMGCX 13:02
PROVIDERS: PCP Internal Medicine; Visit Provider Nurse Practitioner Family
DX: M79.641 Pain in right hand (principal); M79.642 Pain in left hand; M85.642 Other cyst of bone, left hand
CPT/HCPCS: 73130

== ENCOUNTER 2024-02-22 08:14 | Outpatient (REF) | payer MEDICARE, SELFPAY ==
--- NOTE | ~2024-02-22 | MM_ITS ---
EXAMINATION: BONE DENSITOMETRY CLINICAL INDICATION: Other specified disorders of bone density and structure. COMPARISON: Previous BD dated 11/26/2020 and baseline BD dated 08/05/2010. TECHNIQUE: Using a [employer] DXA System (software version: 13.1) manufactured by [employer], dual-energy x-ray absorptiometry was performed of the lumbar spine and left hip. The images are of good technical quality. Summary results are attached. FINDINGS: LEFT FEMUR, NECK: Current: BMD 0.875 g/cm2, Z-score 0.8, T-score -1.2, osteopenia. Prior: BMD 0.771 g/cm2. Baseline: BMD 0.888 g/cm2. LEFT FEMUR, TOTAL: Current: BMD 0.884 g/cm2, Z-score 0.8, T-score -1.0, normal, 8.2% increase from previous, 3.6% decrease from baseline (<5% change is not significant). Prior: BMD 0.817 g/cm2. Baseline: BMD 0.917 g/cm2. AP SPINE L1-L4 (excluding L3): The data of L1-L4 has been changed to exclude the L3 vertebral body, because degenerative sclerosis at this level may cause overestimation of lumbar spine density. Current: BMD 1.217 g/cm2, Z-score 2.4, T-score 0.4, normal, 0.9% decrease from previous, 4.8% increase from baseline (<5% change is not significant). Prior: BMD 1.228 g/cm2. Baseline: BMD 1.161 g/cm2. IDENTIFIED RISK FACTORS: Early menopause, secondary osteoporosis, hysterectomy, bilateral oophorectomy. HISTORY OF FRACTURE: None listed. MEDICATIONS: Calcium supplements or multivitamin, vitamin D, ERT/SERMS. MM/XR DEXA axial skeleton IMPRESSION: 1. DIAGNOSIS: Osteopenia based on the lowest T-score value of -1.2 in the femoral neck applying World Health Organization criteria. 2. 10-YEAR FRACTURE RISK PREDICTION, FRAX: Not performed in this patient on estrogen or bone building treatments. 3. Treatment Recommendations: NOF guidelines recommend consideration for treatment in postmenopausal women and men age 50 and older presenting with the following: -A hip or vertebral (clinical or morphometric) fracture. -T-score less than or equal to -2.5 at the femoral neck or spine after appropriate evaluation to exclude secondary causes. -Low bone mass at the hip or spine and a 10-year fracture probability by FRAX of greater than or equal to 3% for hip fracture or greater than or equal to 20% for major osteoporotic fracture based on the [place] adapted WHO algorithm. 4. Other Recommendations: All treatment decisions require clinical judgment and consideration of individual patient factors, including patient preferences, comorbidities, previous drug use, risk factors not captured in the FRAX model (e.g. frailty, falls, vitamin D deficiency, increased bone turnover, interval significant decline in bone density) and possible under or overestimation of fracture risk by FRAX. Additional medical evaluation for secondary cause of low bone mineral density may be appropriate. FUTURE SCAN RECOMMENDATION: People with diagnosed cases of osteoporosis or at high risk for fracture should have regular bone mineral density tests. For patients eligible for Medicare, routine testing is allowed once every 2 years. The testing frequency can be increased to one year for patients who have rapidly progressing disease, those who are receiving or discontinuing medical therapy to restore bone mass, or have additional risk factors. Electronically signed by: Danielito Bean MD 02/23/2024 01:23 PM EDT
== END 2024-02-22 08:15 | disposition home or self-care (01) ==
LOC: HO.MAMMO 08:14
PROVIDERS: PCP Internal Medicine; Visit Provider Internal Medicine
DX: Z13.820 Encounter for screening for osteoporosis (principal); M85.852 Other specified disorders of bone density and structure, left thigh; E89.40 Asymptomatic postprocedural ovarian failure; Z78.0 Asymptomatic menopausal state
CPT/HCPCS: 77080

== ENCOUNTER 2024-03-13 08:20 | Outpatient (AMB) | payer MEDICARE, SELFPAY ==
--- NOTE | 2024-03-13 08:24 | MHC.OFFVIS ---
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 Right worse than left. 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 She attended PT for this however this relieved her temporarily. Her symptoms has exacerbated in the last 6 months. She reports occasional numbness and tingling mainly in her 2nd, 3rd, 4th and 5th digits of the right hand. She says she also has noticed swelling at the DIP of these digits in her right hand and says she has pain when they are palpitated. She does yoga and says anything that involves her being on her hands and knees exacerbates her pain in her wrist and also her ankles. Any pushing activities with her hands causes pain in her wrist. Denies past treatment of her hands/wrist or past trauma. A doctor gave her wrist brace for when she worked on a computer and said this helped her get relief but chikis wore out so she would like to get some braces today if possible. 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 The patient states that she feels that her body is ?falling apart , and then she has been experiencing significant pain in her bilateral shoulders, knees, ankles, and hands. The patient reports that this hand pain has made it very difficult for her to practice her yoga. She reports that the pain in her right hand is significantly more bothersome than that in her left. Patient also reports that she experiences intermittent numbness and tingling in the right hand, and states that this affects her 2nd, 3rd, 4th and possibly her 5th digit, but states that she is unsure if the small finger is actually affected. Patient denies any numbness or tingling in the left hand. No other acute complaints or concerns at this time. COUNTS INCLUDE 234 BEDS AT THE [facility] Medical History Atrophic vaginitis Surgical menopause Osteopenia of left hip Endometriosis Paroxysmal atrial fibrillation Sick sinus syndrome Surgical History History of cholecystectomy S/P ANTONIO-BSO Status post placement of cardiac pacemaker Family History Father COPD (chronic obstructive pulmonary disease) Mother COPD (chronic obstructive pulmonary disease) Substance use disorder Sister Mental health disorder Sister Mental health disorder Social History Housing: [facility] Alcohol intake: current Alcohol intake frequency: holidays/special occasions only Patient Tobacco Use Status: Never used Tobacco e-Cigarette/Vaping Use: Never Used service: No Current occupational status: retired Cognitive needs: No Hearing needs: No Vision needs: Yes Review of Systems Const All systems reviewed & are unremarkable except as noted in HPI and below Physical Exam Vital Signs: BMI result Body Mass Index 22.5 Extrem Other: Neuro: Normal sensation of the tips of all digits of bilateral hands at this time No thenar or intrinsic wasting. Good APB muscle firing and good finger cross. Vascular: Capillary refill brisk. Pain: Patient reports tenderness to palpation of the right 1st CMC joint Patient reports discomfort in the right thumb with [id number] testing No tenderness to palpation of the right radial styloid ROM: Patient can make a fist and extend all their digits. Skin: No lacerations or abrasions noted. General: No ecchymosis. No erythema or evidence of infection. Negative Jj on the right Results Reviewed Results Reviewed: X-rays obtained in the office today and independently reviewed by me, Joe Jay PA-C, demonstrate [id number] degenerative changes of bilateral hands, worst at the DIP joints. No fracture or acute bony abnormality noted. Assessment & Plan Assessment & Plan (1) Osteoarthritis of fingers of both hands: Code(s): M19.041 - Primary osteoarthritis, right hand; M19.042 - Primary osteoarthritis, left hand Category: Medical (2) Osteoarthritis of hands, bilateral: Code(s): M19.041 - Primary osteoarthritis, right hand; M19.042 - Primary osteoarthritis, left hand Category: Medical Qualifiers: Osteoarthritis type: unspecified Qualified Code(s): M19.041 - Primary osteoarthritis, right hand; M19.042 - Primary osteoarthritis, left hand (3) Arthritis of carpometacarpal (CMC) joint of both thumbs: Code(s): M18.0 - Bilateral primary osteoarthritis of first carpometacarpal joints Category: Medical Plan 1. Osteoarthritis of bilateral fingers and hands 2. First CMC joint arthritis of bilateral hands Patient is educated about this condition and the treatment options available to her, namely conservative management, injections, and eventually surgery if these interventions prove ineffective. The patient would like to proceed with the most conservative treatment options available at this time Patient was provided with comfort cool thumb spica brace to be worn with daytime activities Patient is also referred to occupational hand therapy for bilateral hand range of motion, strengthening, and stabilization Patient is also educated on conservative pain management measures, such as rest, ice, compression, elevation, and [id number] pain medication as needed Patient was amenable to this plan Patient will follow-up as needed with any acute concerns Orders: Orders OT Evaluation and Treatment Today M19.041 - Primary osteoarthritis, right hand, M19.042 - Primary osteoarthritis, left hand Coding Level of Care Code New Pt Level 3 (74419) Diagnoses Osteoarthritis of fingers of both hands M19.041; M19.042 Osteoarthritis of both hands, unspecified osteoarthritis type M19.041; M19.042 Osteoarthritis type: unspecified Arthritis of carpometacarpal (CMC) joint of both thumbs M18.0
[2024-03-13 08:26] VITALS: BMI 22.5
== END 2024-03-13 09:18 | disposition home or self-care (01) ==
PROVIDERS: PCP Internal Medicine
DX: M19.041 Primary osteoarthritis, right hand (principal); M19.042 Primary osteoarthritis, left hand; M18.0 Bilateral primary osteoarthritis of first carpometacarpal joints
CPT/HCPCS: 99203

== ENCOUNTER → 2024-03-13 08:20 | Outpatient (BNVA) | payer MEDICARE, SELFPAY | PROVIDERS: PCP Internal Medicine | DX: M19.041 Primary osteoarthritis, right hand (principal); M19.042 Primary osteoarthritis, left hand; M18.0 Bilateral primary osteoarthritis of first carpometacarpal joints | CPT/HCPCS: 99202 ==

== ENCOUNTER 2024-04-06 15:00 | Outpatient (RCR) | payer MEDICARE, SELFPAY ==
--- NOTE | 2024-03-17 08:20 | MHC.OT.EP ---
[address] [phone] Occupational Therapy Plan of Care Patient Name: Angelica Contreras Date of Evaluation: 03/17/24 Diagnosis: B/L OA Pain Location: Pain free at rest Pain in wrist and tenderness in IPs (touching, gardening) Pain Score: 5 Pain Scale Used: Numeric (0 - 10) Aggravating Factors: Pressure, weightbearing Alleviating Factors: Aleve occasionally Assessment: 73 yo female presents w/ hand pain related to OA, worsening over the past couple years w/ lifting and work tasks. She was seen in therapy for wrist pain, now has orthosis for comfort and support. Today on assessment, she has good digit and wrist ROM, some tightness in intrinsics and mild arthritic changes noted, but overall good movement. Gross gross is weak but functional (38lb R and 42lb L) and she has good understanding of aggravating movements and tasks. We will cont with bried course of therapy to establish HEP for range, strength and stability and mindfulness of joint protection and activity modification w/ DME as needed. Frequency and Duration: The patient will be seen 2x/w for 2 weeks Short Term Goals: Ind w/ HEP Good follow through w/ joint protection techniques Pt to demo good understanding of available DME/orthoses if needed in future Research Project Manager Goals: same as above Treatment Plan: Therapeutic Exercise Therapeutic Activity Home Exercise Program Splinting Patient Education Edema Control ADL Training Paraffin Fluidotherapy MHP Cold Packs Joint Mobilization Kinesiotaping Electronically Signed By: Devika Nava OTR/L CHT Please Sign and return to therapist. Thank you once again for your referral.
--- NOTE | 2024-05-12 10:29 | MHC.OT.DC ---
[address] [phone] F: [phone] Occupational Therapy Discharge Note Patient Name: Angelica Contreras Provider: Joe Jay PA-C Diagnosis: B/L OA Date of Evaluation: 03/17/24 Date of Discharge: 05/12/24 Treatments to Date: 3 Discharge Status: Achieved Goals Improved Function Independent with HEP Discharge Summary: Angelica was referred to OT for early education and management of B/L hand OA. She has has good follow through w/ HEP and understanding of home program. She has met goals and is Ind w/ self management at this time for custodial management of OA related symptoms. Electronically Signed By: Devika Nava OTR/L CHT Reviewed/agree with student documentation: Therapist: Please Sign and return to therapist, thank you for your referral.
== END 2024-05-12 10:31 | disposition home or self-care (01) ==
LOC: HO.OT 15:00
PROVIDERS: PCP Internal Medicine
DX: M19.041 Primary osteoarthritis, right hand (principal); M19.042 Primary osteoarthritis, left hand
CPT/HCPCS: 97110; 97140; 97165; 97760

== ENCOUNTER 2024-08-31 14:17 | Outpatient (AMB) | payer MEDICARE, SELFPAY ==
[2024-08-31 14:24] VITALS: BP 110/64; PULSE 60; RESP 16; O2SAT 97; BMI 23.7
--- NOTE | 2024-08-31 14:24 | MHC.PC.OV ---
Vital Signs 08/31/24 14:24 Height 5 ft 3 in Weight 134 lb BMI 23.7 BP 110/64 Blood Pressure Location Lt brachial Position Sitting Respiration 16 Pulse 60 Pulse Source Pulse Oximeter Pulse Oximetry (%) 97 Oxygen Delivery Method Room Air Intake Visit Reasons: PE Over due Intake Note: Pt is here today for her PE: Last mammogram 02/16/23, bone density scan 02/22/24 Allergies penicillin V Allergy (Unknown, Verified 08/31/24 14:40) unknown, per allergy test Penicillins [PENICILLINS] Allergy (Unknown, Verified 08/31/24 14:40) DURING ALLERGY TESTING WAS INSTRUCTED NEVER TO TAKE ENVIROMENTAL Allergy (Unknown, Uncoded 08/31/24 14:40) HEADACHES Medication List - Last Reconciled 08/31/24 by Berenice Lind MD aspirin (Adult Low Dose Aspirin) 81 mg PO DAILY cholecalciferol (vitamin D3) 50 mcg PO DAILY coenzyme Q10 100 mg PO DAILY estradiol 1 mg PO DAILY metoprolol succinate ER 12.5 mg PO DAILY multivitamin 1 tab PO DAILY turmeric root extract 500 mg PO DAILY Tobacco use date assessed: 08/31/24 Fall risk assessment: No Falls in past year Last assessed Fall Risk: 08/31/24 Dental Screening Dental Screen Date: 08/31/24 Did you have a dental visit in the last 12 months?: Yes Did you have a dental problem in the last 6 months where you did not have access to dental care?: Yes Was dental information given to patient?: Patient has dentist HPI PE Over due HPI Details 73 old lady with history of paroxysmal atrial fibrillation and sick sinus syndrome s/p pacemaker placement, currently followed at [facility], here today for physical exam.. Sees [facility] for her routine Pap and pelvic exam and is currently being treated for atrophic vaginitis postmenopausal syndrome with estradiol 1 mg daily. She is due now for her screening mammogram, last done in 2022 and up-to-date with her screening for osteoporosis with last bone density done last year which showed mild osteopenia in left femoral neck, with a 4.8% increase from previous testing. She is up-to-date with her screening colonoscopy done [address] Manuel, removal of a tubular adenoma done, repeat colonoscopy to be doing 2028 She lives an active lifestyle, and has been taking her vitamin-D 3 supplements and multivitamins with calcium daily. [facility] Medical History Atrophic vaginitis Surgical menopause Osteopenia of left hip Endometriosis Paroxysmal atrial fibrillation Sick sinus syndrome Surgical History History of cholecystectomy S/P ANTONIO-BSO Status post placement of cardiac pacemaker Family History Father COPD (chronic obstructive pulmonary disease) Mother COPD (chronic obstructive pulmonary disease) Substance use disorder Sister Mental health disorder Sister Mental health disorder Social History Housing: Condominium Alcohol intake: current Alcohol intake frequency: holidays/special occasions only Patient Tobacco Use Status: Never used Tobacco e-Cigarette/Vaping Use: Never Used service: No Current occupational status: retired Cognitive needs: No Hearing needs: No Vision needs: Yes Female Reproductive History Menstrual Menopause type: surgical Questionnaire PHQ-9 Over the last 2 weeks, how often have you been bothered by any of the following problems? 1. Little interest or pleasure in doing things: not at all 2. Feeling down, depressed, or hopeless: not at all 3. Trouble falling or staying asleep, or sleeping too much: more than half the days 4. Feeling tired or having little energy: not at all 5. Poor appetite or overeating: not at all 6. Feeling bad about yourself - or that you are a failure or have let yourself or your family down: not at all 7. Trouble concentrating on things, such as reading the newspaper or watching television: not at all 8. Moving or speaking so slowly that other people could have noticed. Or the opposite - being so fidgety or restless that you have been moving around a lot more than usual: not at all 9. Thoughts that you would be better off or of hurting yourself in some way: not at all Total score: 2 Depression Screening Interpretation: Negative Depression Screening Done: Yes 67809 - PHQ-9 Billing: Yes Source: Developed by Drs. Abdirashid Obregon, Robson Martínez and colleagues, with an educational alan from [employer]. Thrive Questionnaire Date Thrive assessed: 08/24/24 I am a: Patient What is your living situation today?: I have a steady place to live Within the past 12 months, did the food you bought not last and you didn't have the money to get more?: Never true Within the past 12 months, did you worry whether your food would run out before you got money to buy more?: Never true Do you have trouble paying for medicines?: No Do you have trouble getting transportation to medical appointments?: No Do you have trouble paying your heating and electricity bill?: No Do you have trouble taking care of your child, family member or friend?: No Do you have trouble with day-to-day activities such as bathing, preparing meals, shopping, managing finances, etc.?: No Are you currently unemployed and looking for a job?: No Are you interested in more education?: No Please select the resources that you would like help with: None Currently or been in a relationship where the following occur: No concerns reported THRIVE Score: 0 AUDIT C Alcohol Use Questionnaire (AUDIT-C) 3. How often do you have six or more drinks on one occasion?: Never Total Score: 0 STEPH-7 AMB Questionnaire STEPH-7 Date STEPH - 7 assessed: 08/31/24 Feeling nervous, anxious, or on edge: 0 = Not at all Not being able to stop or control worryin = Not at all Worrying too much about different things: 0 = Not at all Trouble relaxin = Not at all Being so restless that it is hard to sit still: 0 = Not at all Becoming easily annoyed or irritable: 0 = Not at all Feeling afraid as if something awful might happen: 0 = Not at all Total STEPH-7 score (0-4 normal; 5-9 mild; 10-14 moderate; 15-21 severe): 0 Source: Developed by Drs. Abdirashid Obregon, Robson Martínez and colleagues, with an educational alan from [employer]. STEPH-7 Assessment Billing STEPH-7 Assessment Tool: STEPH-7 Assessment 65092 Review of Systems Const Denies body aches, Denies fatigue, Denies fever(s), Denies headache(s) and Denies weakness Eyes Details: sees Namita Macdonald in [place] Denies change in vision, Denies eye discharge and Reports requires corrective lenses ENT Details: Dental prophylaxis q.6 months Denies dizziness, Denies headache(s), Denies nasal congestion, Denies nasal discharge and Denies sore throat Card Denies chest pain, Denies lightheadedness, Denies palpitations and Denies dyspnea Resp Denies chest congestion, Denies cough, Denies dyspnea and Denies wheezing GI Denies abdominal pain, Denies change in bowel habits and Denies heartburn Denies urinary frequency, Denies dysuria and Denies urinary urgency Musc Reports arthralgias and Reports stiffness Skin/Breast Details: Sees Dr. Wolf for her skin exam Denies lesions and Denies rash Neuro Denies dizziness, Denies headache(s) and Denies weakness Psych Reports as per HPI Endo Denies fatigue, Denies polydipsia, Denies polyuria and Denies palpitations Trevon/Lymph Denies easy bleeding and Denies easy bruising Aller/Immun Denies seasonal rhinorrhea and Denies wheezing Physical exam (Primary Care) Vital Signs: Last Vital Signs Pulse 60 08/31/24 14:24 Resp 16 08/31/24 14:24 BP 110/64 08/31/24 14:24 Pulse Ox 97 08/31/24 14:24 Oxygen Delivery Method Room Air 08/31/24 14:24 BMI result Body Mass Index 23.7 Tobacco/Smoking Status: Tobacco use Status Tobacco use date assessed 08/31/24 08/31/24 14:25 Patient Tobacco Use Status Never used Tobacco 08/31/24 14:25 e-Cigarette/Vaping Use Never Used 08/31/24 14:25 PHQ-9: PHQ-9 Score PHQ-9: Total score 2 08/31/24 15:04 Depression Screening Interpretation: Negative Thrive Assessment: Date of Thrive Assessment Date Thrive assessed 08/24/24 08/31/24 14:25 Currently or been in a relationship where the following occur: No concerns reported Advance Care Planning discussion: Completed/Scanned Date of discussion: 08/31/24 Who was present: Patient Forms completed: Health Care Proxy Time spent: 16-45 minutes Actual minutes spent: 2 Const General: comfortable and no acute distress Nutritional Appearance: average body habitus Orientation/consciousness: patient oriented x3 [facility] Head: Yes normocephalic Ears: hearing grossly normal bilaterally, external ears normal, TM's normal bilaterally and EAC's normal General nose exam: Normal external nose present Face and sinus: Yes normal facial exam and Yes face symmetric Mouth: Normal oral and palatal mucosa present and moist mucous membranes Eyes General: appearance normal, both eyes and all related structures Eyelids: Yes eyelids normal Conjunctivae: conjunctivae normal Sclerae: sclerae normal Pupils: Equal, round and reactive pupils present EOM: EOMs intact bilaterally Neck Neck: Yes full ROM, Yes no lymphadenopathy and Yes supple Thyroid: Thyroid normal Chest Chest palpation & inspection: normal inspection of the chest Breast/axilla inspection: normal inspection of the breasts Breast/axilla palpation: normal palpation of the breasts Resp Effort & Inspection: normal respiratory effort and able to speak in complete sentences Auscultation: clear to auscultation bilaterally Cardio Rate: regular rate Rhythm: regular rhythm Heart sounds: S1 normal heart sound present and S2 normal heart sound present Bruits: no abdominal aortic bruits Peripheral pulses: Peripheral pulses 2+ throughout GI Inspection: Yes normal to inspection Palpation (GI): No Abdominal aortic bruit present, Soft to palpation, nontender, no guarding and no masses Auscultation: normal bowel sounds Rectal Exam - Female: deferred (Sees her OBGYN) General: Yes no CVA tenderness Back/Spine/Pelvis Back: no CVA tenderness and No back tenderness Skin General skin exam: no rashes or lesions noted Neuro General: patient oriented x3, gait normal, tone normal, moves all extremities, Normal light touch and pain sensation, no focal motor deficits and CN's II-XI intact bilaterally Cranial nerves: Yes Equal, round and reactive pupils present Cognition (Neuro): normal cognition Gait exam (Neuro): Normal gait present Motor exam (neuro): 5/5 motor strength present throughout Extrem General: Yes full ROM, Yes no joint enlargement, Yes no clubbing, cyanosis or edema and Yes normal gait Psych Appearance: grossly normal and well kempt Mental Status: mental status grossly normal Speech and movement: Normal speech and movement present Affect: normal affect Attitude: cooperative Thought process: Normal thought process present Thought content: Normal thought content present Coding Level of Care Code Est Pt Prev Care >65y(40312) Diagnoses Annual visit for general adult medical examination with abnormal findings Z00.01 Sick sinus syndrome I49.5 Osteoarthritis of both hands, unspecified osteoarthritis type M19.041; M19.042 Osteoarthritis type: unspecified Surgical menopause E89.40 Osteopenia of left hip M85.852 Paroxysmal atrial fibrillation I48.0 Encounter for counseling regarding advance directives Z71.89 Additional Codes STEPH-7 Assessment Billing - STEPH-7 Assessment Tool: STEPH-7 Assessment 39048 ([id number]) PHQ-9 - 58215 - PHQ-9 Billing: Yes ([id number]) Vital Signs *Quality* - Advance Care Planning discussion: Completed/Scanned ([id number]) Vital Signs *Quality* - Time spent: 16-45 minutes ([id number]) Assessment & Plan Assessment & Plan (1) Annual visit for general adult medical examination with abnormal findings: Code(s): Z00.01 - Encounter for general adult medical examination with abnormal findings Plan: Will check appropriate labs. Recommended dental visit every 6 months and regular eye exams, at least every 2 years. Take adequate calcium in diet and vitamin-D 3 at 2000 IU per cap once a day, in addition to weight-bearing exercises to help maintain good muscle tone and weight control. Instructed to do self-breast exam, and advised to schedule her yearly mammogram, . Up-to-date with her colon cancer screening, with tubular adenoma removed, due for repeat colonoscopy in 2028 She is up-to-date with the COVID-19 vaccination, flu shot, pneumonia vaccine, and shingles vaccine, due for her tetanus diphtheria booster, which she can get administered at the pharmacy (2) Sick sinus syndrome: Comment: status post [facility] pacemaker placement May 2015 Code(s): I49.5 - Sick sinus syndrome Category: Medical Plan: Currently has a pacemaker in place, followed by cardiology. Continued on aspirin 81 mg daily (3) Osteoarthritis of hands, bilateral: Code(s): M19.041 - Primary osteoarthritis, right hand; M19.042 - Primary osteoarthritis, left hand Category: Medical Qualifiers: Osteoarthritis type: unspecified Qualified Code(s): M19.041 - Primary osteoarthritis, right hand; M19.042 - Primary osteoarthritis, left hand Plan: Continue with regular exercise, patient has been taking turmeric root extract 500 mg daily which has been helping (4) Surgical menopause: Code(s): E89.40 - Asymptomatic postprocedural ovarian failure Category: Medical Plan: Followed by Dr. Josias ALEJANDRA who has been prescribing her estradiol 1 mg p.o. q.d., affording relief of postmenopausal symptoms (5) Osteopenia of left hip: Code(s): M85.852 - Other specified disorders of bone density and structure, left thigh Category: Medical Plan: Stressed importance of doing regular weight-bearing exercise, taking adequate calcium from dietary sources and continue taking at least 2000 units of vitamin-D 3 supplements daily (6) Paroxysmal atrial fibrillation: Comment: currently being followed by Dr. Hannon Code(s): I48.0 - Paroxysmal atrial fibrillation Category: Medical Plan: Followed by cardiology currently on aspirin 81 mg daily (7) Encounter for counseling regarding advance directives: Code(s): Z71.89 - Other specified counseling Plan: Initiated the conversation about Advanced Directives. Advanced Directives help patients prepare for current and future decisions about their medical treatment and place of care. Discussed with patient that it is a process where a patients current condition and prognosis are reviewed, their wishes for information regarding their illness are elicited, and likely medical dilemmas are presented and options discussed. Gave proxy form completed today. Patient already has a copy of her MOLST form in chart Theese forms can be amended as needed, reviewed yearly and make changes as needed Orders: Orders Basic Metabolic Panel Fasting 08/31/24 Z00.01 - Encounter for general adult medical examination with abnormal findings, Z71.89 - Other specified counseling Complete Blood Count Auto Diff 08/31/24 Z00.01 - Encounter for general adult medical examination with abnormal findings, Z71.89 - Other specified counseling Vitamin B12 and Folate 08/31/24 Z00.01 - Encounter for general adult medical examination with abnormal findings, Z71.89 - Other specified counseling Aspartate Amino Transferase 08/31/24 Z00.01 - Encounter for general adult medical examination with abnormal findings, Z71.89 - Other specified counseling Alanine Aminotransferase 08/31/24 Z00.01 - Encounter for general adult medical examination with abnormal findings, Z71.89 - Other specified counseling Lipid Panel 08/31/24 Z00.01 - Encounter for general adult medical examination with abnormal findings, Z71.89 - Other specified counseling Hemoglobin A1c 08/31/24 Z00.01 - Encounter for general adult medical examination with abnormal findings, Z71.89 - Other specified counseling Vitamin D 25-OH Total 08/31/24 Z00.01 - Encounter for general adult medical examination with abnormal findings, Z71.89 - Other specified counseling
== END 2024-08-31 15:25 | disposition home or self-care (01) ==
LOC: HO.HMCC 14:18
PROVIDERS: PCP Internal Medicine; Visit Provider Internal Medicine
DX: Z00.01 Encounter for general adult medical examination with abnormal findings (principal); I49.5 Sick sinus syndrome; M19.041 Primary osteoarthritis, right hand; M19.042 Primary osteoarthritis, left hand; E89.40 Asymptomatic postprocedural ovarian failure; M85.852 Other specified disorders of bone density and structure, left thigh; I48.0 Paroxysmal atrial fibrillation; Z71.89 Other specified counseling; Z00.00 Encounter for general adult medical examination without abnormal findings

== ENCOUNTER → 2024-08-31 14:17 | Outpatient (BNVA) | payer MEDICARE, SELFPAY | PROVIDERS: PCP Internal Medicine; Visit Provider Internal Medicine | DX: Z00.01 Encounter for general adult medical examination with abnormal findings (principal); I49.5 Sick sinus syndrome; M19.041 Primary osteoarthritis, right hand; M19.042 Primary osteoarthritis, left hand; E89.40 Asymptomatic postprocedural ovarian failure; M85.852 Other specified disorders of bone density and structure, left thigh; I48.0 Paroxysmal atrial fibrillation; Z71.89 Other specified counseling; Z95.0 Presence of cardiac pacemaker; Z79.899 Other long term (current) drug therapy | CPT/HCPCS: 96127; 99397; 99497 ==

== ENCOUNTER 2025-03-01 07:45 | Outpatient (REF) | payer MEDICARE, SELFPAY ==
--- OUTSIDE RECORDS SUMMARY | 2024-01-31 09:10 | XMS_ITS ---
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 Name Role Phone Diogo OLIVARES, Berenice Primary Care Provider Abdirashid Layton [phone] REASON FOR VISIT screening Problems Problem Type SNOMED Code ICD Code Onset Dates Problem Status W/U Status Risk Notes Problem Diverticular disease of colon (352040710) Diverticulosis of large intestine without perforation or abscess without bleeding (K57.30) Active confirmed Encounters Encounter Location Date Provider Diagnosis [facility] Outpatient [address] [place] [phone] 01/31/2024 Abdirashid Manuel Colon cancer scree gloria [...] * SHAYESOLANGEON FDOB: [birth year] (74 yo F)Acc No.[id number]:01/31/2024 COLON WITH MAC Patient: Emanuel EDISONSOLANGE FERNANDEZON Génesis Provider: Emanuel Manuel MD :1950 A ge:73 Y S ex:Female Date:01/31/2024 Address:[address] [place] [address], [id number] Pcp:Berenice Lind MD Subjective: * Chief Complaints: * 1 . Screening. * Medical History: Objective: * Vitals: Assessment: * Assessment: 1. C olon cancer screening - Z12.11 (Primary) 2 . C olon polyps - K63.5? 3. D iverticulosis of large intestine without perforation or abscess without bleeding - K57.30 4 . O ther hemorrhoids - K64.8 Plan: * Treatment: * Procedure Codes: 4 5385 LESION REMOVAL COLONOSCOPY, Modifiers: PT , 0529F INTRVL 3+YRS PTS CLNSCP DOCD, Modifiers: 8P , 0528F RCMND FLW-UP 10 YRS DOCD, Modifiers: 1P * * The named appointment provid er may or may not be the originator of this progress note, and it is not deemed complete until electronically signed by the appointment provider. Sign off status: Pending * Provider: Emanuel Manuel MD Date: 0 01/31/2024 Generated for Felipa sharma/Manoj/Niallitting on: 0 03/01/2025 07:47 AM EDT
--- NOTE | ~2025-03-01 | MM_ITS ---
EXAMINATION: MM SCREENING DIGITAL BREAST TOMOSYNTHESIS, BILATERAL CLINICAL INFORMATION: Screening. Asymptomatic. COMPARISON: Comparison made to multiple prior, most recent February 16, 2023, and most remote December 28, 2017. TECHNIQUE: Digital breast tomosynthesis is performed in mediolateral oblique and craniocaudal views along with computer-aided detection (CAD). Synthesized 2D images are generated from the tomosynthesis. FINDINGS: BREAST COMPOSITION: The breasts are heterogeneously dense, which may obscure small masses. RIGHT BREAST: Motion partially limits evaluation. No significant masses, suspicious calcifications or other abnormalities are seen. LEFT BREAST: labor/excavator obscures local evaluation. No significant masses, suspicious calcifications or other abnormalities are seen. MM/MM tomosynthesis screening BI IMPRESSION: BILATERAL BREASTS: Benign, no mammographic evidence of malignancy. Normal interval follow-up is recommended in 12 months. ASSESSMENT: BI-RADS: Category 2: Benign RECOMMENDATION: Routine annual mammography screening. FOLLOW-UP: 1 year F/U This examination should not preclude the clinical evaluation of a suspicious palpable abnormality. This patient's information was entered into a reminder system with a target due date for their next mammogram. Electronically signed by: Eddie Tavarez MD 03/02/2025 07:34 PM EDT
--- OUTSIDE RECORDS SUMMARY | 2025-03-01 07:48 | XMS_ITS | Patient Health Record ---
Author Organization [facility] Address [address] [place] [id number] Care Team Providers Care Tile Mason Name Role Phone Diogo OLIVARES, Berenice Primary Care Provider Abdirashid Layton [phone] Allergies Allergen (clinical drug ingredient) Drug/Non Drug Allergy documented on EMR Reaction Allergy Type Onset Date Status Penicillin Unknown Drug Allergy Active enviornmental (uncoded) Unknown Allergy Active Reason For Referral No Information Medications Medication SIG (Take, Route, Frequency, Duration) Notes Start Date End Date Status Metamucil - 1 packet with 8 ounc es of liquid as needed Orally Once a day for 30 day(s) 10/20/2023 Active Turmeric-Lissette 150-25 MG as directed Orally 10/19 Active Advil 200 MG 1 tablet with food o r milk as needed Orally Three times a day 10/20/2023 Active Estradiol 1 MG Oral for 90 Act joesph Metoprolol Succinate ER 25 MG TAKE 1/2 TABLET BY MOUTH EVERY DAY Oral for 90 Active Biotin 5000 5 MG 1 capsule Orally Onc e a day for 30 day(s) 10/20/2023 Active Multi Vitamin - 1 tablet Orally Once a day for 30 day(s) 10/20/2023 Active Aspirin 81 MG 1 tablet Orally Once a day for 30 day(s) 10/20/2023 Active Vitamin D3 50 MCG (1999 UT) 1 capsule Orally Once a day for 30 day(s) 10/20/2023 Active Immunizations Vaccine Route Administration Date Status Comme nts Influenza Unknown 03/30/2023 Administered Social History Tobacco Use: Social History Observation Description Date Details (start date - stop date) Never Smoker NA - NA Tobacco Use/Smoking Question Answer Notes Patient is a nonsmoker Alcohol Screen Question Answer Notes Did you have a drink contain ing alcohol in the past year? Yes How often did you have a dri nk containing alcohol in the past year? 2 to 3 times a week (3 points) How many drinks did you have on a typical day when you were drinking in the past year? 1 or 2 drinks (0 point) How often did you have 6 or more drinks on one occasion in the past year? Never (0 point) Points 3 Interpretation Positive Problems Problem Type SNOMED Code ICD Code Onset Dates Problem Status W/U Status Risk Notes Problem Colon cancer screening (323933061) Colon cancer screening (Z12.11) Active confirmed Problem Pre-procedure evaluation check (058413216) Encounter for other preprocedural examination (Z01.818) Active confirmed Problem Diverticular disease of colon (902138254) Diverticulosis of large intestine without perforation or abscess without bleeding (K57.30) Active confirmed Problem Long-term current use of aspirin ([id number] ) Aspirin long-term use (Z79.82) Active confirmed Plan Of Treatment Future Test Test Name Order Date COLONOSCOPY 10/20/2023 Insurance Providers Payer Name Payer Address Payer Phone Subscriber Number Group Number Insured Name Patient Relationship to Insured Coverage Start Date Coverage End Date [facility] [address] [place] [address] [id number] GALEN CR Self - patient is the insured Medical (General) History Medical History History ICD Code Denies CA,DM,CVA,Lung disease,renal dise ase HTN Pacemaker due to syncope Hyperlipidemia Surgical History Surgery Date(Month/Year) Pacemaker 2014 [facility]Y 2014 Hysterectomy with BSO 1994
== END 2025-03-01 07:46 | disposition home or self-care (01) ==
LOC: HO.MAMMO 07:45
PROVIDERS: PCP Internal Medicine; Visit Provider Internal Medicine
DX: Z12.31 Encounter for screening mammogram for malignant neoplasm of breast (principal)
CPT/HCPCS: 77063; 77067

== ENCOUNTER → 2025-03-01 08:15 | Outpatient (BNV) | payer MEDICARE, SELFPAY | PROVIDERS: PCP Internal Medicine; Visit Provider Radiology Body Imaging | DX: Z12.31 Encounter for screening mammogram for malignant neoplasm of breast (principal) | CPT/HCPCS: 77063; 77067 ==

== ENCOUNTER 2025-05-02 06:03 | Outpatient (REF) | payer MEDICARE, SELFPAY ==
--- OUTSIDE RECORDS SUMMARY | 2024-01-31 08:10 | XMS_ITS ---
Author Organization [facility] Address [address] [place] [id number] Care Team Providers Care Booth Cleaner Name Role Phone Diogo OLIVARES, Berenice Primary Care Provider Abdirashid Layton [phone] REASON FOR VISIT screening Problems Problem Type SNOMED Code ICD Code Onset Dates Problem Status W/U Status Risk Notes Problem Diverticular disease of colon (298391060) Diverticulosis of large intestine without perforation or abscess without bleeding (K57.30) Active confirmed Encounters Encounter Location Date Provider [place] [facility] [address] [place] [phone] 01/31/2024 Abdirashid Manuel Colon cancer scree gloria Z12.11 ; Colon polyps K63.5 ; Diverticulosis of large intestine without perforation or abscess without bleeding K57.30 and Other hemorrhoids K64.8 Assessments Encounter Date Diagnosis (ICD Code) Assessment Notes Treatment Notes Treatment Clinical Notes Section Notes 01/31/2024 Colon cancer screening (ICD-10 - Z12.11) 01/31/2024 Colon polyps (ICD-10 - K63.5) 01/31/2024 Diverticulosis of large intestine without perforation or abscess without bleeding (ICD-10 - K57.30) 01/31/2024 Other hemorrhoids (ICD-10 - K64.8) Plan Of Treatment No Information Progress Notes * SHAYESOLANGEON FDOB: [birth year] (74 yo F)Acc No.[id number]:01/31/2024 COLON WITH MAC Patient: Emanuel EDISONSOLANGE FERNANDEZON Génesis Provider: Emanuel Manuel MD :1950 A ge:73 Y S ex:Female Date:01/31/2024 Address:[address] [place] [address], [id number] Pcp:Berenice Lind MD Subjective: * Chief Complaints: * S creening Assessment: * Assessment: 1. C olon cancer screening - Z12.11 (Primary) 2 . C olon polyps - K63.5? 3. D iverticulosis of large intestine without perforation or abscess without bleeding - K57.30 4 . O ther hemorrhoids - K64.8 Plan: * Procedure Codes: 4 5385 LESION REMOVAL COLONOSCOPY, Modifiers: PT 0529F INTRVL 3+YRS PTS CLNSCP DOCD, Modifiers: 8P 0528F RCMND FLW-UP 10 YRS DOCD, Modifiers: 1P Billing Information: * Procedure Codes: 63864 LESION REMOVAL COLONOSCOPY. Modifiers: PT 0529F INTRVL 3+YRS PTS CLNSCP DOCD. Modifiers: 8P 0528F RCMND FLW-UP 10 YRS DOCD. Modifiers: 1P * The named appointment provid er may or may not be the originator of this progress note, and it is not deemed complete until electronically signed by the appointment provider. Sign off status: Pending * Provider: Emanuel Manuel MD Date: 0 01/31/2024 Generated for Felipa sharma/Manoj/Niallitting on: 07/02/2024 06:06 AM EST
--- OUTSIDE RECORDS SUMMARY | 2025-05-02 06:06 | XMS_ITS | Patient Health Record ---
Author Organization [facility] Address [address] [place] [id number] Care Team Providers Care Garment Inspector Name Role Phone Diogo OLIVARES, Berenice Primary Care Provider Abdirashid Layton [phone] Allergies Allergen (clinical drug ingredient) Drug/Non Drug Allergy documented on EMR Reaction Allergy Type Onset Date Status enviornmental (uncoded) Unknown Allergy Active Penicillin Unknown Drug Allergy Active Reason For Referral No Information Medications Medication SIG (Take, Route, Frequency, Duration) Notes Start Date End Date Status Metamucil - Packet 1 packet with 8 ounc es of liquid as needed Orally Once a day; Duration: 30 day(s) 10/20/2023 Active Turmeric-Lissette 150-25 MG Tablet Chewable as directed Orally 10/20/2023 Active Advil 200 MG Tablet 1 tablet with food o r milk as needed Orally Three times a day 10/20/2023 Active Estradiol 1 MG Tablet Oral; Duration: 90 Active Metoprolol Succinate ER 25 MG Tablet Extended Release 24 Hour TAKE 1/2 TABLET BY MOUTH EVERY DAY Oral; Duration: 90 Active Biotin 5000 5 MG Capsule 1 capsule Orall y Once a day; Duration: 30 day(s) 10/20/2023 Active Multi Vitamin - Tablet 1 tablet Orally O nce a day; Duration: 30 day(s) 10/20/2023 Active Aspirin 81 MG Tablet Chewable 1 tablet Orally Once a day; Duration: 30 day(s) 10/20/2023 Active Vitamin D3 50 MCG (1999 [place]) Capsule 1 capsule Orally Once a day; Duration: 30 day(s) 10/20/2023 Active Immunizations Vaccine Route Administration Date Status Comme nts Influenza Unknown 03/30/2023 Administered Social History Tobacco Use: Social History Observation Description Date Details (start date - stop date) Never Smoker NA - NA Social History Drugs/Alcohol: Social Info Question Answer Notes Alcohol Screen Did you have a drink containing alcohol in the past year? Yes How often did you have a drink containing alcohol in the past year? 2 to 3 times a week (3 points) How many drinks did you have on a typical day when you were drinking in the past year? 1 or 2 drinks (0 point) How often did you have 6 or more drinks on one occasion in the past year? Never (0 point) Points 3 Interpretation Positive Tobacco Use: Social Info Question Answer Notes Tobacco Use/Smoking Patient is a nonsmoker Additional Details Category Social Info Options Details Miscellaneous: Marital status: Occupation: retired Problems Problem Type SNOMED Code ICD Code Onset Dates Problem Status W/U Status Risk Notes Problem Colon cancer screening (267378255) Colon cancer screening (Z12.11) Active confirmed Problem Pre-procedure evaluation check (966469857) Encounter for other preprocedural examination (Z01.818) Active confirmed Problem Diverticular disease of colon (943476719) Diverticulosis of large intestine without perforation or abscess without bleeding (K57.30) Active confirmed Problem Long-term current use of aspirin (110997737642286 ) Aspirin long-term use (Z79.82) Active confirmed Plan Of Treatment Future Test Test Name Order Date COLONOSCOPY 10/20/2023 Insurance Providers Payer Name Payer Address Payer Phone Subscriber Number Group Number Insured Name Patient Relationship to Insured Coverage Start Date Coverage End Date [facility] [id number] [place] [address] [id number] GALEN CR Self - patient is the insured Medical (General) History Medical History History ICD Code Denies ME,DM,CVA,Lung disease,renal dise ase HTN Pacemaker due to syncope Hyperlipidemia Surgical History Surgery Date(Month/Year) Pacemaker 2014 CCY 2014 Hysterectomy with BSO 1994
[2025-05-02 07:57] LABS: Cholesterol 254 mg/dL (<200); HDL Cholesterol 66 mg/dL (>40); Triglycerides 86 mg/dL (<150)
== END 2025-05-02 06:04 | disposition home or self-care (01) ==
LOC: HO.LAB 06:03
PROVIDERS: Absent Provider Student in an Organized Health Care Education/Training Program; PCP Internal Medicine; Visit Provider Internal Medicine
DX: E78.5 Hyperlipidemia, unspecified (principal)
CPT/HCPCS: 36415; 80061